=== PATIENT | female | born 1990 | race Asian ===

== ENCOUNTER 2020-10-18 12:32 | Emergency (ER) | payer OTHER ==
[~2020-10-18] VITALS: Ht 165.1 cm; Wt 54.5 kg
[2020-10-18 15:37] VITALS: BP 131/69
== END 2020-10-18 15:47 | disposition home or self-care (01) ==
LOC: M ED 12:32 → EDBD 12:32 → M ED 15:47
DX: R21 Rash and other nonspecific skin eruption (principal); T50.Z95A Adverse effect of other vaccines and biological substances, initial encounter; X58.XXXA Exposure to other specified factors, initial encounter; Y92.89 Other specified places as the place of occurrence of the external cause; Z88.7 Allergy status to serum and vaccine